=== PATIENT | female | born 1940 | race Two or more races ===

== ENCOUNTER → 2017-05-04 | Emergency (ER) | payer OTHER ==
[~2017-05-04] VITALS: Ht 149.9 cm; Wt 59.0 kg
[~2017-05-04] MED LIST: ASPIR 8181 MG; FENOFIBRATE145 MG; HYDROCHLOROTHIA25 MG; LOSARTAN POTAS100 MG; NIFE60TA3; SIMVASTATIN40 MG; TOPROL XL50 M1; VASOTEC20 M1; VITAMIN D310000 UNIT
== END | disposition home or self-care (01) ==
LOC: ER 10:21
DX: S92.415A Nondisplaced fracture of proximal phalanx of left great toe, initial encounter for closed fracture (principal); W20.8XXA Other cause of strike by thrown, projected or falling object, initial encounter; Y93.01 Activity, walking, marching and hiking; Y92.018 Other place in single-family (private) house as the place of occurrence of the external cause; Y99.8 Other external cause status

== ENCOUNTER 2019-02-03 12:44 | Outpatient (CLI) | payer OTHER | END 2019-02-03 12:56 | disposition home or self-care (01) | LOC: NUCLEAR 12:44 | DX: M81.0 Age-related osteoporosis without current pathological fracture (principal) ==

== ENCOUNTER 2019-05-21 10:01 | Outpatient (CLI) | payer OTHER | END 2019-05-21 10:13 | disposition home or self-care (01) | LOC: LAB 10:01 | DX: N95.0 Postmenopausal bleeding (principal); R53.81 Other malaise; N30.00 Acute cystitis without hematuria ==

== ENCOUNTER 2021-04-24 10:40 | Emergency (ER) | payer OTHER ==
[~2021-04-24] VITALS: Ht 149.9 cm; Wt 51.7 kg
== END 2021-04-24 13:45 | disposition home or self-care (01) ==
LOC: ER 10:40
DX: B37.0 Candidal stomatitis (principal); Z85.42 Personal history of malignant neoplasm of other parts of uterus; I10 Essential (primary) hypertension; I73.9 Peripheral vascular disease, unspecified; Z79.82 Long term (current) use of aspirin; Z88.0 Allergy status to penicillin; Z88.8 Allergy status to other drugs, medicaments and biological substances

== ENCOUNTER 2022-06-13 13:13 | Emergency (ER) | payer OTHER ==
[~2022-06-13] VITALS: Ht 144.8 cm; Wt 49.9 kg
[2022-06-13] MEDS ORDERED: ALDACTONE25 MG PO (13:23)
[2022-06-13] MEDS ORDERED: TRICOR145 MG PO (13:25)
[2022-06-13] MEDS ORDERED: CLEOCIN HCL300 MG PO (16:47)
[2022-06-13] MEDS ORDERED: PEPCID AC20 MG PO (16:47)
== END 2022-06-13 16:47 | disposition home or self-care (01) ==
LOC: ER 13:13
DX: L03.116 Cellulitis of left lower limb (principal); Z88.0 Allergy status to penicillin; Z91.013 Allergy to seafood; I20.8 Other forms of angina pectoris; I10 Essential (primary) hypertension; E78.00 Pure hypercholesterolemia, unspecified; L02.818 Cutaneous abscess of other sites; T36.8X5A Adverse effect of other systemic antibiotics, initial encounter; Y92.230 Patient room in hospital as the place of occurrence of the external cause